=== PATIENT | female | born 1995 | race African-American/Black ===

== ENCOUNTER 2019-03-27 08:36 | Emergency (ER) | payer MEDICAID, OTHER ==
[~2019-03-27] VITALS: Ht 154.9 cm; Wt 46.0 kg
[2019-03-27 08:45] VITALS: BP 112/73
[2019-03-27] MEDS ORDERED: FLUCONAZOLE 150MG TABLET PO ONE (09:30)
[2019-03-27] MEDS ORDERED: AZITHROMYCIN 500 MG TABLET PO ONE (09:30)
[2019-03-27] MEDS ORDERED: LIDOCAINE HCL/PF 1% 10 MG/ML 5ML VIAL IJ ONE (09:30)
[2019-03-27] MEDS ORDERED: CEFTRIAXONE SODIUM 250 MG/VIAL IM ONE (09:30)
[2019-03-27] MEDS ORDERED: IBUPROFEN 800MG TABLET PO ONE (09:45)
[2019-03-27 10:07] LABS: CLARITY URINE CLOUDY (CLEAR); COLOR URINE YELLOW (YELLOW); KETONES URINE NEGATIVE (NEGATIVE); LEUKOCYTE ESTERASE URINE 1+ (NEGATIVE); NITRITE URINE NEGATIVE (NEGATIVE); OCCULT BLOOD URINE NEGATIVE (NEGATIVE); PROTEIN URINE NEGATIVE (NEGATIVE); SPECIFIC GRAVITY URINE 1.022 (1.005-1.030); UROBILINOGEN URINE 0.2 E.U./dL (0.2-1.0)
[2019-03-27 10:09] LABS: UCG SCREEN NEGATIVE
[2019-03-29 04:09] LABS: CHLAMYDIA TRACHOMATIS NAA Negative (Negative); NEISSERIA GONORRHOEAE NAA Negative (Negative)
== END 2019-03-28 05:10 | disposition home or self-care (01) ==
LOC: ER 08:36
DX: R68.84 Jaw pain (principal); K04.7 Periapical abscess without sinus; A64 Unspecified sexually transmitted disease; B37.3 Candidiasis of vulva and vagina; F12.10 Cannabis abuse, uncomplicated
CPT/HCPCS: 81003; 81025; 87086; 87491; 87591; 96372; 99283; J0696; J3490

== ENCOUNTER 2021-11-30 12:20 | Emergency (ER) | payer OTHER ==
[~2021-11-30] VITALS: Ht 154.9 cm; Wt 53.0 kg
[2021-11-30] MEDS ORDERED: ACETAMINOPHEN 325MG TABLET PO STA (13:58)
[2021-11-30 15:03] LABS: BASOPHILS % 0.6 % (0.0-2.0); EOSINOPHILS % 0.8 % (0.0-5.0); HEMATOCRIT. 42.3 % (36.0-48.0); HEMOGLOBIN. 14.2 g/dL (12.0-16.0); MEAN CORPUSCULAR HEMOGLOBIN 31.4 pg (28.0-32.0); MEAN CORPUSCULAR VOLUME 93.9 fL (81.0-99.0); MONOCYTES % 5.3 % (2.0-8.0); NEUTROPHILS % 70.3 % (40.0-76.0); PLATELET 264 x1000/uL (130-400); RED BLOOD CELL COUNT 4.51 mill/uL (4.2-5.4); RED CELL DISTRIBUTION WIDTH 12.8 % (11.6-14.6)
[2021-11-30 15:11] LABS: CHLORIDE 101 mEq/L (98-107)
[2021-11-30 15:23] LABS: CLARITY URINE CLOUDY (CLEAR); COLOR URINE ORANGE (YELLOW); KETONES URINE TRACE (NEGATIVE); LEUKOCYTE ESTERASE URINE 2+ (NEGATIVE); NITRITE URINE NEGATIVE (NEGATIVE); OCCULT BLOOD URINE 3+ (NEGATIVE); PH URINE 6.5 (4.5-8.0); PROTEIN URINE 1+ (NEGATIVE); SPECIFIC GRAVITY URINE 1.018 (1.005-1.030)
[2021-11-30 15:42] LABS: B-HCG QUANTITATIVE 6151 mIU/mL (<3)
[2021-11-30] MEDS ORDERED: CEPH500C2 MT ×2 (16:24)
[2021-11-30] MEDS ORDERED: AZITHROMYCIN 500 MG TABLET PO ONE (16:30)
[2021-11-30] MEDS ORDERED: LIDOCAINE HCL 1% 20ML VIAL (Pyxis) INJ INFIL ONE (16:30)
[2021-11-30] MEDS ORDERED: CEFTRIAXONE SODIUM 500 MG/VIAL IM ONE (16:30)
[2021-11-30] MEDS ORDERED: METRONIDAZOLE 500MG TABLET PO ONE (16:30)
[2021-11-30 18:04] VITALS: BP 98/59
[2021-12-03 05:08] LABS: NEISSERIA GONORRHOEAE NAA Negative (Negative)
[2021-12-03] MEDS ORDERED: CEPH500C2 MT (12:48)
== END 2021-11-30 18:17 | disposition home or self-care (01) ==
LOC: ER 12:20
DX: N93.9 Abnormal uterine and vaginal bleeding, unspecified (principal); N39.0 Urinary tract infection, site not specified; A59.9 Trichomoniasis, unspecified
CPT/HCPCS: 36415; 76830; 76856; 80053; 81003; 81025; 84702; 85025; 86850; 86900; 86901; 87491; 87591; 96372; 99284; J0696; J3490

== ENCOUNTER 2021-12-12 09:36 | Emergency (ER) | payer OTHER ==
[~2021-12-12] VITALS: Ht 154.9 cm; Wt 52.0 kg
[~2021-12-12 09:36] MED LIST: CEPH500C2 MT
[2021-12-12 09:45] VITALS: BP 121/69
[2021-12-12 11:31] LABS: BASOPHILS % 0.8 % (0.0-2.0); EOSINOPHILS % 1.5 % (0.0-5.0); HEMATOCRIT. 42.5 % (36.0-48.0); HEMOGLOBIN. 14.3 g/dL (12.0-16.0); LYMPHOCYTES % 30.2 % (20.0-50.0); MEAN CORPUSCULAR HEMOGLOBIN 31.6 pg (28.0-32.0); MEAN CORPUSCULAR VOLUME 93.9 fL (81.0-99.0); MEAN PLATELET VOLUME 9.7 fl (7.4-10.4); MONOCYTES % 7.1 % (2.0-8.0); NEUTROPHILS % 60.4 % (40.0-76.0); PLATELET 245 x1000/uL (130-400); RED BLOOD CELL COUNT 4.52 mill/uL (4.2-5.4); RED CELL DISTRIBUTION WIDTH 12.8 % (11.6-14.6)
[2021-12-12 11:36] LABS: CHLORIDE 104 mEq/L (98-107)
[2021-12-12 11:56] LABS: PROTHROMBIN TIME 10.4 sec (9.6-11.0)
[2021-12-12] MEDS ORDERED: LIDOCAINE HCL 1% 50ML VIAL (10MG/ML) ONE (13:10)
[2021-12-12] MEDS ORDERED: PROPOFOL 200MG/20ML VIAL IV ONE (13:10)
[2021-12-12] MEDS ORDERED: FENTANYL CITRATE/PF 50MCG/ML 2ML VIAL ONE (13:11)
[2021-12-12] MEDS ORDERED: ONDANSETRON HCL 4MG/2ML INJ ONE (13:12)
[2021-12-12] MEDS ORDERED: CEFAZOLIN SODIUM 1000MG/VIAL ONE (13:12)
[2021-12-12] MEDS ORDERED: DEXAMETHASONE 4MG/ML 1ML VIAL ONE (13:12)
[2021-12-12] MEDS ORDERED: MIDAZOLAM HCL 2 MG/2 ML VIAL ONE (13:12)
[2021-12-12] MEDS ORDERED: SUCCINYLCHOLINE CHLORIDE 200MG/10ML IV ONE (13:13)
[2021-12-12] MEDS ORDERED: ROCURONIUM BROMIDE 10MG/ML VIAL 5ML IV ONE (13:13)
== END 2021-12-12 09:45 | disposition left against medical advice (07) ==
LOC: ER 09:36
DX: O00.90 Unspecified ectopic pregnancy without intrauterine pregnancy (principal); O08.83 Urinary tract infection following an ectopic and molar pregnancy; F17.210 Nicotine dependence, cigarettes, uncomplicated; F12.10 Cannabis abuse, uncomplicated; F10.10 Alcohol abuse, uncomplicated; Y90.9 Presence of alcohol in blood, level not specified
CPT/HCPCS: 36415; 76801; 76817; 80053; 84702; 85025; 85610; 99291; J0330; J1100; J2250; J2704; J3010; J3490; J0690; J2405

== ENCOUNTER 2022-01-12 07:17 | Emergency (ER) | payer OTHER ==
[~2022-01-12] VITALS: Ht 157.5 cm; Wt 60.0 kg
[2022-01-12 07:38] VITALS: BP 109/64
[2022-01-12 09:25] LABS: CHLORIDE 105 mEq/L (98-107)
[2022-01-12 09:42] LABS: BASOPHILS % 0.3 % (0.0-2.0); EOSINOPHILS % 1.3 % (0.0-5.0); HEMATOCRIT. 44.7 % (36.0-48.0); HEMOGLOBIN. 15.1 g/dL (12.0-16.0); LYMPHOCYTES % 29.1 % (20.0-50.0); MEAN CORPUSCULAR HEMOGLOBIN 31.6 pg (28.0-32.0); MEAN CORPUSCULAR VOLUME 93.8 fL (81.0-99.0); MONOCYTES % 5.8 % (2.0-8.0); NEUTROPHILS % 63.5 % (40.0-76.0); PLATELET 222 x1000/uL (130-400); RED BLOOD CELL COUNT 4.77 mill/uL (4.2-5.4); RED CELL DISTRIBUTION WIDTH 12.9 % (11.6-14.6)
[2022-01-12 09:44] LABS: B-HCG QUANTITATIVE 424 mIU/mL (<3)
[2022-01-12 10:05] LABS: HCG SCREEN POSITIVE
== END 2022-01-12 12:38 | disposition home or self-care (01) ==
LOC: ER 07:17
DX: Z04.89 Encounter for examination and observation for other specified reasons (principal); F12.10 Cannabis abuse, uncomplicated
CPT/HCPCS: 36415; 76830; 76856; 80053; 84702; 84703; 85025; 99284

== ENCOUNTER 2022-01-30 09:49 | Emergency (ER) | payer OTHER ==
[~2022-01-30] VITALS: Ht 154.9 cm; Wt 50.0 kg
[2022-01-30 09:51] VITALS: BP 118/72
== END 2022-01-30 12:14 | disposition home or self-care (01) ==
LOC: ER 09:59
DX: Z04.89 Encounter for examination and observation for other specified reasons (principal); F12.10 Cannabis abuse, uncomplicated
CPT/HCPCS: 36415; 84702; 99283